=== PATIENT | male | born 1950 | race Caucasian/White ===

== ENCOUNTER 2018-10-22 05:29 | Emergency (ER) | payer OTHER ==
[2018-10-22 05:47] VITALS: BP 135/82; PULSE 60; TEMP 98.6; BMI 23.6
--- NOTE | 2018-10-22 05:56 | PDOC ---
History of Present Illness - General Chief Complaint: Laceration Stated Complaint: HEAD LAC Time Seen by Provider: 10/22/18 05:48 History Source: Patient Exam Limitations: No Limitations - History of Present Illness Initial Comments: 10/22/18 05:53 This is a 68-year-old male who fell last night hit his head [facility] and comes in this morning because the laceration wasn't bleeding. Patient otherwise denies any loss of consciousness headache and neck ache body aches or any other complaints. Patient thinks he hit his head a little before midnight last night. Allergies: as per nursing notes Past Medical History: none Social history: Lives with family. No smoking. No alcohol. No illicit drugs. Surgical history: None General: No fevers or chills, no weakness, no weight loss HEENT: No change in vision. No sore throat,. No ear pain, laceration forehead CardioVascular: no chest discomfort. No shortness of breath Respiratory:No cough, or wheezing. Gastrointestinal: no nausea, vomiting, diarrhea or constipation, No rectal bleeding Genitourinary: No dysuria, hematuria, or frequency Musculoskeletal: No joint or muscle pain or swelling Neurologic: No headache, vertigo, dizziness or loss of consciousness Psychiatric: nor depression Skin: No rashes or easy bruising Endocrine: no increased thirst or abnormal weight change Allergic: no skin or latex allergy All other systems reviewed and normal GENERAL: The patient is awake, alert, and fully oriented, in no acute distress. HEAD: There is a superficial approximately 1 cm laceration left forehead above the left eyebrow. Neurovascular intact there is no active bleeding at this time EYES: Pupils equal, round and reactive to light, extraocular movements intact, sclera anicteric, conjunctiva clear. EXTREMITIES:atraumatic, Normal range of motion, no edema. NEUROLOGICAL: Normal speech, normal gait. PSYCH: Normal mood, normal affect. SKIN: Warm, Dry, normal turgor, no rashes or lesions noted. Procedure note: Laceration cleaned and closed with Dermabond patient tolerated well Patient discharged with Dermabond instructions and will follow-up with his primary care doctor as needed Past History - Past Medical History Allergies/Adverse Reactions: Allergies Allergy/AdvReac Type Severity Reaction Status Date / Time No Known Allergies Allergy Unverified 10/22/18 05:30 Home Medications: Ambulatory Orders Aspirin [Aspirin EC] 162 mg PO DAILY 10/22/18 Atorvastatin Ca [Lipitor] 80 mg PO HS 10/22/18 Gabapentin 800 mg PO 5XD 10/22/18 Nabumetone [Relafen -] 500 mg PO BID 10/22/18 Ramipril 10 mg PO DAILY 10/22/18 Cancer: Yes (PROSTATE) Cardiac Disorders: Yes COPD: No HTN: Yes Hypercholesterolemia: Yes Other medical history: NEUROPATHY - Surgical History Cardiac Surgery: Yes (STENTS) - Suicide/Smoking/Psychosocial Hx Smoking History: Never smoked *Physical Exam - Vital Signs Last Vital Signs Temp Pulse Resp BP Pulse Ox 98.6 F 60 16 135/82 97 10/22/18 05:42 10/22/18 05:42 10/22/18 05:42 10/22/18 05:42 10/22/18 05:42 *DC/Admit/Observation/Transfer Diagnosis at time of Disposition: Forehead laceration Qualifiers: Encounter type: initial encounter Qualified Code(s): S01.81XA - Laceration without foreign body of other part of head, initial encounter - Discharge Dispostion Disposition: HOME Condition at time of disposition: Stable Decision to Admit order: No - Referrals Referrals: Willis Shah MD [Primary Care Provider] - - Patient Instructions Printed Discharge Instructions: DI for Laceration Repair With Dermabond Additional Instructions: Read over and follow the Dermabond instructions the most important part is to keep it dry for 72 hours and to do not put any petroleum based products on it. Return to the emergency department immediately with ANY new, persistent or worsening symptoms. Continue any medications as previously prescribed by your physician. You should follow up with your primary doctor as soon as possible regarding today's emergency department visit. . Please make sure your doctor reviews the results of your emergency evaluation. Thank you for coming to the Emergency Department today for your care. It was a pleasure to see you today. Please note that your evaluation is INCOMPLETE until you follow-up with your doctor. - Post Discharge Activity
== END 2018-10-22 05:59 | disposition home or self-care (01) ==
LOC: FER 05:29
DX: S01.81XA Laceration without foreign body of other part of head, initial encounter (principal); W22.03XA Walked into furniture, initial encounter; Y93.89 Activity, other specified; Y92.89 Other specified places as the place of occurrence of the external cause; I10 Essential (primary) hypertension; Z95.5 Presence of coronary angioplasty implant and graft; Z85.46 Personal history of malignant neoplasm of prostate
CPT/HCPCS: 99281-25

== ENCOUNTER 2020-10-23 15:25 | Observation (INO) | payer OTHER ==
[2020-10-23 15:46] VITALS: BMI 23.6
[2020-10-23] MEDS ORDERED: SODIUM CHLORIDE 0.9% 500 ML INFUS.BAG IV ONE ×2 (16:51→17:52)
[2020-10-23 18:19] LABS: BASO % 0.3 % (0-2.0); EOS % 0.2 % (0-4.5); HEMATOCRIT 48.6 % (35.4-49); HEMOGLOBIN 16.5 GM/dL (11.7-16.9); LYMPH % 6.5 % (8-40); MEAN PLT VOLUME 8.6 fl (7.5-11.1); PLATELET COUNT 135 10^3/uL (134-434); RBC 5.17 M/mm3 (4.00-5.60); RDW 13.9 % (11.9-15.9); WHITE BLOOD COUNT 9.8 K/mm3 (4.0-10.0)
[2020-10-23 18:29] LABS: CHLORIDE 106 mmol/L (98-107); SODIUM 136 mmol/L (136-145)
[2020-10-23 18:31] LABS: CALCIUM 9.5 mg/dL (8.5-10.1)
[2020-10-23 18:32] LABS: ALBUMIN 3.7 g/dl (3.4-5.0); BLOOD UREA NITROGEN 13.8 mg/dL (7-18); CO2 28 mmol/L (21-32); GLUCOSE,RANDOM 116 mg/dL (74-106)
[2020-10-23 18:35] LABS: CREATININE 1.1 mg/dL (0.55-1.3); SGOT/AST 103 U/L (15-37)
[2020-10-23 18:36] LABS: BILIRUBIN,TOTAL 1.1 mg/dL (0.2-1)
[2020-10-23 18:37] LABS: TOT PROT 6.9 g/dl (6.4-8.2)
[2020-10-23 18:38] LABS: ALK PHOS 72 U/L (45-117)
[2020-10-23] MEDS ORDERED: GABAPENTIN 400 MG CAPSULE PO STA (18:44)
[2020-10-23 19:09] LABS: SGPT/ALT 52 U/L (13-61)
[2020-10-23 19:12] LABS: ANION GAP 3 MMOL/L (8-16)
[2020-10-23 21:17] LABS: CALCIUM 9.1 mg/dL (8.5-10.1)
[2020-10-23 21:18] LABS: BLOOD UREA NITROGEN 12.2 mg/dL (7-18)
[2020-10-23 21:21] LABS: CREATININE 0.8 mg/dL (0.55-1.3)
[2020-10-24 00:37] LABS: EPI CELLS 5 /uL (0-25.1); HYALINE CASTS 1 /uL (0-3.1); PH,URINE 6.5 (5.0-8.0); URINE APPEARANCE TURBID; URINE BILIRUBIN 1+ (NEGATIVE); URINE COLOR ORANGE; URINE GLUCOSE (UA) NEGATIVE (NEGATIVE); URINE KETONE NEGATIVE (NEGATIVE); URINE LEUK ESTERASE 2+ (NEGATIVE); URINE NITRITE POSITIVE (NEGATIVE); URINE PROTEIN 3+ (NEGATIVE); URINE WBC 93 /uL (0-25.8)
[2020-10-24 01:33] LABS: URINE RBC 31396 /uL (0-23.9)
[2020-10-24] MEDS: GABAPENTIN 400 MG CAPSULE PO SCH ×2 (05:44→14:07)
[2020-10-24 07:49] LABS: BASO % 0.6 % (0-2.0); EOS % 1.3 % (0-4.5); HEMATOCRIT 44.1 % (35.4-49); HEMOGLOBIN 15.1 GM/dL (11.7-16.9); MCH 32.2 pg (25.7-33.7); MCHC 34.3 g/dl (32.0-35.9); MEAN CELL VOLUME 93.9 fl (80-96); MEAN PLT VOLUME 8.6 fl (7.5-11.1); MONO % 8.8 % (3.8-10.2); NEUT % 68.3 % (42.8-82.8); PLATELET COUNT 131 10^3/uL (134-434); RBC 4.69 M/mm3 (4.00-5.60); RDW 13.8 % (11.9-15.9); WHITE BLOOD COUNT 6.8 K/mm3 (4.0-10.0)
[2020-10-24 08:05] LABS: CHLORIDE 107 mmol/L (98-107); SODIUM 141 mmol/L (136-145)
[2020-10-24 08:12] LABS: ALBUMIN 3.4 g/dl (3.4-5.0); ANION GAP 6 MMOL/L (8-16); BLOOD UREA NITROGEN 11.7 mg/dL (7-18); CO2 28 mmol/L (21-32); GLUCOSE,RANDOM 82 mg/dL (74-106); MAGNESIUM 2.1 mg/dL (1.8-2.4)
[2020-10-24 08:15] LABS: CREATININE 0.8 mg/dL (0.55-1.3); PHOSPHOROUS 3.4 mg/dL (2.5-4.9); SGOT/AST 24 U/L (15-37); SGPT/ALT 35 U/L (13-61)
[2020-10-24 08:16] LABS: BILIRUBIN,TOTAL 1.6 mg/dL (0.2-1); TOT PROT 5.6 g/dl (6.4-8.2)
[2020-10-24 08:17] LABS: ALK PHOS 66 U/L (45-117)
[2020-10-24] MEDS ORDERED: ENOXAPARIN NA (PORCINE) 40 MG/0.4 ML DISP.SYRIN SQ SCH (10:00)
[2020-10-24] MEDS ORDERED: AMOX TR/POT CLAV 875MG/125MG TABLETS (FP) PO SCH (10:00)
[2020-10-24] MEDS ORDERED: SODIUM CHLORIDE 1,000 ML IV SCH (10:15)
[2020-10-24 14:44] VITALS: BP 121/71; PULSE 58; TEMP 97.3
[2020-10-24] MEDS ORDERED: ATORVASTATIN CA 80 MG TABLET (FP) PO SCH (22:00)
== END 2020-10-24 17:26 | disposition home or self-care (01) ==
LOC: JER 15:25 → JERBED 19:12 → INTOOBSV 19:12 → J4W 10-24 02:36
PROVIDERS: ADMIT Hospitalist; ATTEND Internal Medicine
PROC: 3E0337Z Introduction of Electrolytic and Water Balance Substance into Peripheral Vein, Percutaneous Approach (ICD-10-PCS; principal; 2020-10-23)
PROC: 3E023GC Introduction of Other Therapeutic Substance into Muscle, Percutaneous Approach (ICD-10-PCS; 2020-10-23)
DX: R55 Syncope and collapse (principal); Z98.890 Other specified postprocedural states; I10 Essential (primary) hypertension; I11.9 Hypertensive heart disease without heart failure; E78.5 Hyperlipidemia, unspecified; S09.90XA Unspecified injury of head, initial encounter; I25.10 Atherosclerotic heart disease of native coronary artery without angina pectoris; R00.1 Bradycardia, unspecified; Z29.9 Encounter for prophylactic measures, unspecified; W18.39XA Other fall on same level, initial encounter; Y93.89 Activity, other specified; Y92.89 Other specified places as the place of occurrence of the external cause
CPT/HCPCS: 36415; 70450-TC; 71045-TC-FY; 72125-TC; 80048; 80053; 80061; 81003; 82550; 82553; 82668; 82962; 83036; 83721; 83735; 84100; 84436; 84443; 84484; 85025; 93005; 93010; 96372; 99285-25; C9803; G0378; U0003; U0005